=== PATIENT | female | born 1950 | race Caucasian/White ===

== ENCOUNTER → 2016-08-19 | Outpatient (CLI) | payer MEDICARE ==
[~2016-08-19] MED LIST: ASPIRIN81 MG PO; AUGMENTIN 875-1 EACH PO; CRESTOR40 MG PO; HYDROCHLOROTH12.5 MG PO; LISINOPRIL40 MG PO; PROTONIX40 MG PO; SIMVASTATIN40 MG PO; VITAMIN B-121000 MCG PO; VITAMIN D31000 UNIT PO
== END ==
LOC: US 11:00
DX: I73.9 Peripheral vascular disease, unspecified (principal); M79.604 Pain in right leg; M79.605 Pain in left leg; R25.2 Cramp and spasm; I74.8 Embolism and thrombosis of other arteries
CPT/HCPCS: 93925

== ENCOUNTER → 2016-10-19 | Outpatient (CLI) | payer MEDICARE ==
[2016-10-19 10:40] LABS: HEMOGLOBIN 13.6 gm/dl (12.3-15.3); RED BLOOD COUNT 4.86 M/UL (4.00-5.10); WHITE BLOOD COUNT 4.7 K/UL (4.5-11.0)
[2016-10-19 11:01] LABS: BUN/CREATININE RATIO 14 (0-10)
== END ==
LOC: LAB 10:10
PROVIDERS: Internal Medicine
DX: Z01.812 Encounter for preprocedural laboratory examination (principal); R93.8 Abnormal findings on diagnostic imaging of other specified body structures; I73.9 Peripheral vascular disease, unspecified; M79.604 Pain in right leg
CPT/HCPCS: 36415; 80048; 85025; 85610; 85730

== ENCOUNTER → 2016-10-21 | Outpatient (CLI) | payer MEDICARE, SELFPAY | END | disposition home or self-care (01) | LOC: CATH 06:31 | DX: I70.212 Atherosclerosis of native arteries of extremities with intermittent claudication, left leg (principal); I70.92 Chronic total occlusion of artery of the extremities; I70.0 Atherosclerosis of aorta; I10 Essential (primary) hypertension; E78.5 Hyperlipidemia, unspecified; R93.8 Abnormal findings on diagnostic imaging of other specified body structures; F17.200 Nicotine dependence, unspecified, uncomplicated; Z79.82 Long term (current) use of aspirin; Z79.899 Other long term (current) drug therapy; I65.29 Occlusion and stenosis of unspecified carotid artery; M19.049 Primary osteoarthritis, unspecified hand; Z87.891 Personal history of nicotine dependence; K21.9 Gastro-esophageal reflux disease without esophagitis; R73.01 Impaired fasting glucose; R25.2 Cramp and spasm; N95.1 Menopausal and female climacteric states; D48.5 Neoplasm of uncertain behavior of skin; M85.80 Other specified disorders of bone density and structure, unspecified site; D51.0 Vitamin B12 deficiency anemia due to intrinsic factor deficiency; E55.9 Vitamin D deficiency, unspecified | CPT/HCPCS: 36200; 75630; J1644; J2250; J3010; J7030; Q9965 ==

== ENCOUNTER → 2021-12-05 | Outpatient (CLI) | payer MEDICARE, OTHER | LOC: US 08:00 → EXRD 08:00 | DX: R10.11 Right upper quadrant pain (principal) | CPT/HCPCS: 76705 ==